=== PATIENT | female | born 1975 | race Caucasian/White ===

== ENCOUNTER → 2019-11-25 | Outpatient (CLI) | payer OTHER ==
[~2019-11-25] MED LIST: PREN1TAB39 PO
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
== END ==
LOC: RAD 14:48
PROVIDERS: ATTEND Family Medicine
DX: J98.11 Atelectasis (principal); R07.9 Chest pain, unspecified
CPT/HCPCS: 71046

== ENCOUNTER → 2019-12-01 | Outpatient (CLI) | payer OTHER ==
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
== END ==
LOC: RAD 13:34
PROVIDERS: ATTEND Family Medicine
DX: R07.89 Other chest pain (principal); M54.6 Pain in thoracic spine; V49.9XXA Car occupant (driver) (passenger) injured in unspecified traffic accident, initial encounter
CPT/HCPCS: 71250; 72128